=== PATIENT | male | born 1955 | race African-American/Black ===

== ENCOUNTER 2023-05-23 09:20 | Inpatient (IN) | payer BC ==
[~2023-05-23] VITALS: Ht 175.3 cm; Wt 84.5 kg
[2023-05-23 10:23] LABS: BASOPHILS % (AUTO) 0.4 % (0-1); EOSINOPHILS # (AUTO) 0.2 X10'3 (0-0.9); EOSINOPHILS % (AUTO) 1.5 % (0-6); HEMATOCRIT 49.7 % (42.0-52.0); HEMOGLOBIN 16.8 g/dl (14.0-17.9); LYMPHOCYTES # (AUTO) 2.2 X10'3 (1.1-4.8); LYMPHOCYTES % (AUTO) 19.1 % (21-51); MEAN CORPUSCULAR HEMOGLOBIN 28.6 PG (27.0-31.0); MEAN CORPUSCULAR HGB CONC 33.8 g/dL (33.0-36.5); MEAN CORPUSCULAR VOLUME 84.5 FL (78-98); MEAN PLATELET VOLUME 8.9 FL (7.4-10.4); MONOCYTES # (AUTO) 0.6 X10'3 (0-0.9); MONOCYTES % (AUTO) 5.5 % (2-12); NEUTROPHILS # (AUTO) 8.3 X10'3 (1.8-7.7); NEUTROPHILS % (AUTO) 73.5 % (42-75); PLATELET COUNT 278 X10'3 (140-440); RED BLOOD COUNT 5.88 X10'6 (4.70-6.10); RED CELL DISTRIBUTION WIDTH 13.3 % (11.5-14.5); WHITE BLOOD COUNT 11.3 X10'3 (4.5-11.0)
[2023-05-23 10:41] LABS: APTT 30 SECONDS (22-32)
[2023-05-23 10:42] LABS: ALANINE AMINOTRANSFERASE 17 U/L (12-78); ALBUMIN 3.8 G/DL (3.4-5.0); ALBUMIN/GLOBULIN RATIO 0.8 (1.1-1.5); ALKALINE PHOSPHATASE 87 IU/L (46-116); ANION GAP 12 (8-16); ASPARTATE AMINO TRANSFERASE 11 U/L (10-37); BILIRUBIN,TOTAL 1.1 MG/DL (0.1-1.0); BLOOD UREA NITROGEN 9 MG/DL (7-18); BUN/CREATININE RATIO 6.6 (10.0-20.0); CALCIUM 9.8 MG/DL (8.5-10.1); CHLORIDE 96 MMOL/L (99-107); CREATININE 1.36 MG/DL (0.60-1.10); GLUCOSE 307 MG/DL (70-104); POTASSIUM 3.9 MMOL/L (3.5-5.1); SODIUM 135 MMOL/L (135-145); TOTAL PROTEIN 8.5 G/DL (6.4-8.2); eCRCL 53 ML/MIN; eGFR 52 ML/MIN
[2023-05-23] MEDS: normal saline 1000ML IV soln IVB ONE (10:43)
[2023-05-23] MEDS: meclizine 12.5mg tablet PO ONE (10:44)
[2023-05-23 10:51] LABS: PRO BRAIN NATRIURETIC PEPTIDE 35 PG/ML (0-125)
[2023-05-23] MEDS: insulin regular, human 10 units/0.1 ml syringe IV ONE (13:21)
[2023-05-23] MEDS ORDERED: iohexol 350MG/ML 100ml bottle IV ONE (16:48)
[2023-05-23] MEDS ORDERED: NO HOME MEDS (21:12)
[2023-05-23] MEDS ORDERED: dextrose 50%-water 50ml dispensing syringe IV PRN ×2 (22:50)
[2023-05-23] MEDS ORDERED: magnesium Cl slow-release 64mg tablet PO PRN (22:50)
[2023-05-23] MEDS ORDERED: mag hydrox/Alum hydrox/simeth 30ml oral suspension PO PRN (22:50)
[2023-05-23] MEDS ORDERED: potassium Cl 20 mEq SR tablet PO PRN ×2 (22:50)
[2023-05-23] MEDS ORDERED: magnesium 2GM in 50ml NS 50 ML IV PRN (22:50)
[2023-05-23] MEDS ORDERED: DEXTROSE 15 GM of carb/4 tabs (each vial/BOTTLE has 4 tablets) PO PRN ×2 (22:50)
[2023-05-23] MEDS ORDERED: potassium Cl 40MEQ/1/2NS 520ml 520 ML IV PRN (22:50)
[2023-05-23] MEDS ORDERED: ondansetron/PF 4mg/2ml inj IV PRN (22:50)
[2023-05-23] MEDS ORDERED: glucagon, human recombinant 1mg kit SUBCUT PRN (22:50)
[2023-05-23] MEDS ORDERED: acetaminophen 325mg tablet PO PRN (22:50)
[2023-05-23] MEDS ORDERED: magnesium 4gm in 100ml NS 100 ML IV PRN (22:50)
[2023-05-23] MEDS: MESSAGE TO PHARMACY PO ONE (23:12)
[2023-05-23 23:30] LABS: C-REACTIVE PROTEIN 0.75 MG/DL (0.0-0.5); MAGNESIUM 1.6 MG/DL (1.5-2.4); POTASSIUM 4.2 MMOL/L (3.5-5.1)
[2023-05-23 23:31] LABS: HEMOGLOBIN A1C 10.7 % (4.5-6.2)
[2023-05-23 23:32] LABS: D-DIMER 0.21 MG/L FEU (0-0.50)
[2023-05-23] MEDS: lisinopril 10 MG tablet PO SCH (23:35)
[2023-05-24] VITALS (8 sets, daily range): BP systolic 91–162; BP diastolic 72–98; PULSE 80–107; RESP 13–20; TEMP 97.8–98.7; O2SAT 96–99
[2023-05-24 03:32] LABS: BASOPHILS # (AUTO) 0.1 X10'3 (0-0.2); BASOPHILS % (AUTO) 0.5 % (0-1); EOSINOPHILS # (AUTO) 0.3 X10'3 (0-0.9); EOSINOPHILS % (AUTO) 2.1 % (0-6); HEMATOCRIT 48.6 % (42.0-52.0); HEMOGLOBIN 16.2 g/dl (14.0-17.9); LYMPHOCYTES # (AUTO) 2.9 X10'3 (1.1-4.8); LYMPHOCYTES % (AUTO) 23.6 % (21-51); MEAN CORPUSCULAR HEMOGLOBIN 28.2 PG (27.0-31.0); MEAN CORPUSCULAR HGB CONC 33.4 g/dL (33.0-36.5); MEAN CORPUSCULAR VOLUME 84.5 FL (78-98); MEAN PLATELET VOLUME 8.7 FL (7.4-10.4); MONOCYTES # (AUTO) 0.7 X10'3 (0-0.9); NEUTROPHILS # (AUTO) 8.2 X10'3 (1.8-7.7); NEUTROPHILS % (AUTO) 67.8 % (42-75); PLATELET COUNT 267 X10'3 (140-440); RED BLOOD COUNT 5.75 X10'6 (4.70-6.10); RED CELL DISTRIBUTION WIDTH 13.1 % (11.5-14.5); WHITE BLOOD COUNT 12.1 X10'3 (4.5-11.0)
[2023-05-24 04:10] LABS: ALANINE AMINOTRANSFERASE 15 U/L (12-78); ALBUMIN 3.3 G/DL (3.4-5.0); ALBUMIN/GLOBULIN RATIO 0.8 (1.1-1.5); ALKALINE PHOSPHATASE 77 IU/L (46-116); ANION GAP 14 (8-16); ASPARTATE AMINO TRANSFERASE 13 U/L (10-37); BLOOD UREA NITROGEN 9 MG/DL (7-18); BUN/CREATININE RATIO 7.5 (10.0-20.0); CALCIUM 9.3 MG/DL (8.5-10.1); CHLORIDE 97 MMOL/L (99-107); CHOL/HDL RATIO 4.6 (0.00-4.99); CHOLESTEROL 231 MG/DL (0-200); GLUCOSE 196 MG/DL (70-104); HDL CHOLESTEROL 50 MG/DL (35-60); LDL CHOLESTEROL 163 MG/DL (50-100); MAGNESIUM 1.7 MG/DL (1.5-2.4); PHOSPHORUS 3.4 MG/DL (2.3-4.5); POTASSIUM 3.9 MMOL/L (3.5-5.1); SODIUM 133 MMOL/L (135-145); TOTAL PROTEIN 7.6 G/DL (6.4-8.2); TRIGLYCERIDES 85 MG/DL (20-135); eCRCL 61 ML/MIN; eGFR 73 ML/MIN
[2023-05-24] MEDS: K and/or MAG REPLACEMENT MC SCH (08:00)
[2023-05-24] MEDS: heparin, porcine 5000 units/ml vial SQ SCH (08:15)
[2023-05-24] MEDS: docusate sod 100mg capsule PO SCH (08:15)
[2023-05-24] MEDS: magnesium hydroxide 30ml (MOM) UD suspension PO PRN (08:17)
[2023-05-24] MEDS: insulin Lispro (HumaLOG) vial - multi-dose SQ SCH (09:13)
[2023-05-24] MEDS: PERFLUTREN PROTEIN-A MICROSPHR (Optison) 0.22 MG/ML 3ML VIAL IV ONE (16:20)
[2023-05-24] MEDS: aspirin 81mg, enteric-coated 1 TAB TABLET.DR PO SCH (17:32)
[2023-05-24] MEDS: atorvastatin 20mg tablet PO SCH (17:32)
[2023-05-24 17:44] LABS: BILIRUBIN,URINE SMALL (Neg); CLARITY,URINE SLIGHTLY CLOUDY (Clear); COLOR,URINE YELLOW (Yellow); GLUCOSE, URINE >=1000 mg/dl (Neg); KETONES,URINE 15 mg/dl (Neg); LEUKOCYTE ESTERASE ,URINE NEGATIVE (Neg); NITRITES, URINE NEGATIVE (Neg); OCCULT BLOOD,URINE NEGATIVE (Neg); PROTEIN,URINE NEGATIVE (Neg)
[2023-05-24 18:17] LABS: UA COLLECTION TYPE CLN CATCH MIDSTREAM
[2023-05-24 18:20] LABS: BACTERIA,URINE NONE SEEN /HPF (Neg); RBC,URINE 0-2 /HPF (0-2); SQUAMOUS EPITHELIAL CELL,UR NONE SEEN /LPF (FEW); URIC ACID CRYSTALS FEW /HPF (NEGATIVE); WBC,URINE 0-4 /HPF (0-4)
[2023-05-24] MEDS: insulin glargine (Lantus) pen - multi-dose SQ SCH (21:12)
[2023-05-25] MEDS: normal saline 1000ml 1,000 ML IV SCH (01:30)
[2023-05-25 02:00] VITALS: BP 128/63; PULSE 85; RESP 16; TEMP 97.9; O2SAT 99
[2023-05-25 06:00] VITALS: BP 146/82; PULSE 77; RESP 14; TEMP 97.7; O2SAT 99
[2023-05-25 08:25] VITALS: RESP 14; O2SAT 99
[2023-05-25 08:44] LABS: BASOPHILS % (AUTO) 0.2 % (0-1); EOSINOPHILS # (AUTO) 0.2 X10'3 (0-0.9); EOSINOPHILS % (AUTO) 2.5 % (0-6); HEMATOCRIT 46.6 % (42.0-52.0); HEMOGLOBIN 15.3 g/dl (14.0-17.9); LYMPHOCYTES # (AUTO) 2.7 X10'3 (1.1-4.8); LYMPHOCYTES % (AUTO) 29.9 % (21-51); MEAN CORPUSCULAR HEMOGLOBIN 28.1 PG (27.0-31.0); MEAN CORPUSCULAR HGB CONC 32.8 g/dL (33.0-36.5); MEAN CORPUSCULAR VOLUME 85.6 FL (78-98); MEAN PLATELET VOLUME 9.4 FL (7.4-10.4); MONOCYTES # (AUTO) 0.7 X10'3 (0-0.9); MONOCYTES % (AUTO) 7.9 % (2-12); NEUTROPHILS # (AUTO) 5.4 X10'3 (1.8-7.7); NEUTROPHILS % (AUTO) 59.5 % (42-75); PLATELET COUNT 254 X10'3 (140-440); RED BLOOD COUNT 5.44 X10'6 (4.70-6.10); RED CELL DISTRIBUTION WIDTH 13.7 % (11.5-14.5)
[2023-05-25] MEDS: atorvastatin 20mg tablet PO SCH (08:58)
[2023-05-25 08:59] LABS: CHLORIDE 101 MMOL/L (99-107); POTASSIUM 3.9 MMOL/L (3.5-5.1); SODIUM 137 MMOL/L (135-145)
[2023-05-25] MEDS: clopidogrel 75mg tablet PO SCH (08:59)
[2023-05-25 09:32] VITALS: BP 146/82; PULSE 77; RESP 14; TEMP 97.7; O2SAT 99
[2023-05-25 09:42] LABS: ALANINE AMINOTRANSFERASE 19 U/L (12-78); ALBUMIN 2.9 G/DL (3.4-5.0); ALBUMIN/GLOBULIN RATIO 0.7 (1.1-1.5); ALKALINE PHOSPHATASE 70 IU/L (46-116); ANION GAP 14 (8-16); ASPARTATE AMINO TRANSFERASE 20 U/L (10-37); BILIRUBIN,TOTAL 0.6 MG/DL (0.1-1.0); BLOOD UREA NITROGEN 19 MG/DL (7-18); BUN/CREATININE RATIO 14.5 (10.0-20.0); CALCIUM 8.9 MG/DL (8.5-10.1); CREATININE 1.31 MG/DL (0.60-1.10); FREE T4 (FREE THYROXINE) 1.33 NG/DL (0.73-1.40); GLUCOSE 212 MG/DL (70-104); MAGNESIUM 1.9 MG/DL (1.5-2.4); PHOSPHORUS 4.2 MG/DL (2.3-4.5); THYROID STIMULATING HORMONE 1.03 ulU/ml (0.34-4.50); TOTAL CARBON DIOXIDE 22.4 MMOL/L (24-32); TOTAL PROTEIN 7.1 G/DL (6.4-8.2); eCRCL 55 ML/MIN; eGFR 66 ML/MIN
[2023-05-25 11:00] VITALS: BP 140/86; PULSE 79; RESP 17; TEMP 98.7; O2SAT 98
[2023-05-25] MEDS ORDERED: LANTUS SQ (12:26)
[2023-05-25] MEDS ORDERED: AMA1T PO (12:26)
[2023-05-25] MEDS ORDERED: LINA5TAB4 PO (12:26)
[2023-05-25] MEDS ORDERED: METF-1203 PO (12:26)
[2023-05-25 15:00] VITALS: BP 152/67; PULSE 87; RESP 21; TEMP 98.9; O2SAT 99
[2023-05-25] MEDS ORDERED: CLOP75TA34 PO (15:52)
[2023-05-25] MEDS ORDERED: ASPI-1071 PO (15:52)
[2023-05-25] MEDS ORDERED: ATOR20TA66 PO (15:52)
[2023-05-25] MEDS ORDERED: LISI20TA28 PO (16:23)
[2023-05-25 21:20] LABS: HBSAG SCREEN Negative (Negative); HEP B CORE AB, IGM Negative (Negative); HEP B CORE AB, TOT Negative (Negative)
== END 2023-05-25 17:15 | disposition home health service (06) | DRG 65 ==
LOC: ER 09:22 → ED HOLD 23:00 → EDBEDREQ 05-24 00:24 → PCU 3S 05-24 01:10
PROVIDERS: ADMIT Student in an Organized Health Care Education/Training Program; ATTEND Family Medicine
PROC: B32T1ZZ Computerized Tomography (CT Scan) of Left Pulmonary Artery using Low Osmolar Contrast (ICD-10-PCS; principal; 2023-05-23)
PROC: B3201ZZ Computerized Tomography (CT Scan) of Thoracic Aorta using Low Osmolar Contrast (ICD-10-PCS; 2023-05-23)
PROC: B32S1ZZ Computerized Tomography (CT Scan) of Right Pulmonary Artery using Low Osmolar Contrast (ICD-10-PCS; 2023-05-23)
DX: I63.89 Other cerebral infarction (principal); E87.1 Hypo-osmolality and hyponatremia; E78.00 Pure hypercholesterolemia, unspecified; N18.30 Chronic kidney disease, stage 3 unspecified; E11.22 Type 2 diabetes mellitus with diabetic chronic kidney disease; I65.21 Occlusion and stenosis of right carotid artery; Z88.8 Allergy status to other drugs, medicaments and biological substances
CPT/HCPCS: 36415; 70450; 70496; 70498; 70551; 71045; 80053; 80061; 81001; 82948; 83036; 83735; 83880; 84100; 84132; 84439; 84443; 84484; 85025; 85379; 85610; 85651; 85730; 86140; 86704; 86705; 87081; 87340; 92508; 92616; 93005; 93306; 96361; 96374; 97116; 97161; 97530; 99285; G0378; J1644; J1815; J3490; J7030; J8597; Q9967